=== PATIENT | female | born 1960 | race Caucasian/White ===

== ENCOUNTER 2022-07-24 06:00 | Day surgery (SDC) | payer MEDICARE, OTHER ==
[2022-07-24] MEDS ORDERED: Propofol 200 MG/20 ML SDV ONE (07:37)
[2022-07-24] MEDS ORDERED: Lactated Ringers 1,000 ML IV ONE (08:00)
== END 2022-07-24 09:05 ==
LOC: MW.SDS 06:00
PROVIDERS: ATTEND Surgery
DX: Z12.11 Encounter for screening for malignant neoplasm of colon (principal); F17.210 Nicotine dependence, cigarettes, uncomplicated; Z86.010 Personal history of colon polyps; Z88.8 Allergy status to other drugs, medicaments and biological substances; Z88.6 Allergy status to analgesic agent; Z79.899 Other long term (current) drug therapy; Z79.890 Hormone replacement therapy; Z98.890 Other specified postprocedural states; Z90.710 Acquired absence of both cervix and uterus
CPT/HCPCS: G0105; J2704; J7120; 00812

== ENCOUNTER 2023-08-23 16:10 | Emergency (ER) | payer MEDICARE, OTHER ==
[2023-08-23] MEDS ORDERED: Metoprolol Tartrate 25 MG Tab PO ONE (17:23)
[2023-08-23] MEDS ORDERED: Ketorolac 60 MG/2 ML SDV IM ONE (17:23)
== END 2023-08-23 19:00 | disposition home or self-care (01) ==
LOC: MW.ED 16:10
DX: I10 Essential (primary) hypertension (principal); Z88.8 Allergy status to other drugs, medicaments and biological substances; Z88.5 Allergy status to narcotic agent
CPT/HCPCS: 93005; 96372; 99284; A9270; J1885; 93010; 99283